=== PATIENT | male | born 1990 | race Caucasian/White ===

== ENCOUNTER 2020-02-26 15:45 | Emergency (ER) | payer SELFPAY ==
[~2020-02-26] VITALS: Ht 175.3 cm; Wt 111.1 kg
--- OUTSIDE RECORDS SUMMARY | 2020-02-26 17:49 | XMS REPORT ---
Author Author Admin, [place] Organization [facility] – [place] [facility] Address [address] [place] [address] Phone Allergies, Adverse Reactions, Alerts Allergy Name Reaction Description Start Date Severity Status Provider No Known Allergies Caryn MORFINP Conditions or Problems Problem Name Problem Code Onset Date Status Entry Date Provider Comment Standard Description Annotate Syphilis 097.9 Active Caryn MORFINP Syphilis, unspecified Contact with or exposure to unspecified communicable disease V01.9 Active Rosemarie Minor 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 Contact with or exposure to unspecified communicable disease Exposure to sexually transmissible disorder (event) V01.6 Active Caryn Juarez AUTOMATIC EDGER Contact with or exposure to venereal diseases HIV exposure, possible V15.89 Active Caryn MORFINP Other specified personal history presenting hazards to health Rheumatoid arthritis of bilateral wrists 714.0 Active Caryn MORFINP Rheumatoid arthritis Medication List Medication Instructions Start Date Stop Date Generic Name NDC Status Provider Patient Instruction AZITHROMYCIN 500 MG ORAL TABLET 2 tabs by mouth single dose AZITHROMYCIN 60964721940 Active Caryn Juarez AUTOMATIC EDGER Active MOTRIN IB 200 MG ORAL TABLET 800 mg motrin As Needed IBUPROFEN 50425976874 Active Caryn Juarez AUTOMATIC EDGER Active ONDANSETRON HCL 4 MG ORAL TABLET 1 tablet 1-2 hours before taking PEP ONDANSETRON HCL 79337875585 Active Caryn Juarez AUTOMATIC EDGER Active TIVICAY 50 MG ORAL TABLET 1 By Mouth once a day DOLUTEGRAVIR SODIUM 46085326718 Active Caryn Juarez AUTOMATIC EDGER Active TRUVADA 200-300 MG ORAL TABLET 1 by mouth daily EMTRICITABINE-TENOFOVIR 76915143063 Active Caryn Juarez AUTOMATIC EDGER Active Vital Signs Date Name Value Unit Range Description blood pressure, diastolic 88 mm[Hg] BP cooley blood pressure, systolic 153 mm[Hg] BP sys height E&M 69 [in_us] Bdy height pulse rate E&M 72 /min Heart rate respiratory rate E&M 22 /min Resp rate temperature E&M 98.4 [degF] Body temperature weight E&M 256 [lb_av] Weight Measured Diagnostic Results Date Name Value Unit Range Description Lab Report: CBC With Differential/Platelet, Comp. Metabolic Panel (14), ... - Hematology hematocrit, blood 44.8 % 37.5-51.0 Lab Report: Ct, Ng, Trich vag by TEA - Microbiology Neisseria gonorrhoeae DNA probe Negative Negative Lab Report: Comp. Metabolic Panel (14), RPR, Rfx Qn RPR/Confirm TP, RPR ... - Chemistry sodium, serum 139 mmol/L 134-144 Lab Report: CBC With Differential/Platelet, Comp. Metabolic Panel (14), ... - Hematology neutrophils as percent of blood leukocytes 46 % Not Estab. basophils as percent of blood leukocytes 0 % Not Estab. Lab Report: Comp. Metabolic Panel (14), RPR, Rfx Qn RPR/Confirm TP, RPR ... - Serology rapid plasma reagin antibody, serum 1:4 NonRea<1:1 Lab Report: Comp. Metabolic Panel (14), RPR, Rfx Qn RPR/Confirm TP, RPR ... - Chemistry carbon dioxide, venous blood 22 mmol/L 20-29 hepatitis B surface antigen Negative Negative chloride, serum 101 mmol/L 96-106 calcium, serum 9.4 mg/dL 8.7-10.2 urea nitrogen, blood 10 mg/dL 6-20 alanine aminotransferase (SGPT), serum 21 U/L 0-44 Lab Report: CBC With Differential/Platelet, Comp. Metabolic Panel (14), ... - Hematology mean corpuscular hemoglobin, RBC 31.8 pg 26.6-33.0 mean corpuscular hemoglobin concentration, RBC 34.4 G/DL % 31.5-35.7 Lab Report: Comp. Metabolic Panel (14), RPR, Rfx Qn RPR/Confirm TP, RPR ... - Chemistry protein, total, serum 7.7 g/dL 6.0-8.5 Lab Report: Comp. Metabolic Panel (14), RPR, Rfx Qn RPR/Confirm TP, RPR ... - Lab Treponema pallidum antibodies, by particle agglutination Positive Negative Lab Report: Comp. Metabolic Panel (14), RPR, Rfx Qn RPR/Confirm TP, RPR ... - Chemistry alkaline phosphatase, serum 95 U/L 39-117 Lab Report: CBC With Differential/Platelet, Comp. Metabolic Panel (14), ... - Hematology erythrocyte (RBC) count 4.85 X10E6/UL 10*6/mm3 4.14-5.80 Lab Report: Comp. Metabolic Panel (14), RPR, Rfx Qn RPR/Confirm TP, RPR ... - Serology hepatitis C antibody, serum <0.1 0.0-0.9 Lab Report: CBC With Differential/Platelet, Comp. Metabolic Panel (14), ... - Hematology hemoglobin, blood 15.4 g/dL 13.0-17.7 Lab Report: CBC With Differential/Platelet, Comp. Metabolic Panel (14), ... - Chemistry Absolute Neutrophils 3.7 X10E3/UL 10*3/uL 1.4-7.0 Lab Report: Comp. Metabolic Panel (14), RPR, Rfx Qn RPR/Confirm TP, RPR ... - Chemistry urea nitrogen/creatinine ratio, serum 13 9-20 Lab Report: CBC With Differential/Platelet, Comp. Metabolic Panel (14), ... - Hematology lymphocytes as percent of blood leukocytes 42 % Not Estab. mean corpuscular volume, RBC 92 fL 79-97 Lab Report: Comp. Metabolic Panel (14), RPR, Rfx Qn RPR/Confirm TP, RPR ... - Genetics/fertility eGFR if 142 mL/min/1.73m2 >59 Lab Report: CBC With Differential/Platelet, Comp. Metabolic Panel (14), ... - Hematology basophil count, absolute 0.0 x10E3/uL 0.0-0.2 monocytes as percent of blood leukocytes 9 % Not Estab. Lab Report: Ct/GC TEA, Rectal, Ct/GC TEA, Pharyngeal - Basic GC Rectum Negative Negative Lab Report: Comp. Metabolic Panel (14), RPR, Rfx Qn RPR/Confirm TP, RPR ... - Chemistry globulin, serum 3.3 1.5-4.5 albumin/globulin ratio, serum 1.3 1.2-2.2 Estimated Glomerular Filtration Rate (calc) 122 mL/min/1.73m2 >59 creatinine, serum 0.80 mg/dL 0.76-1.27 bilirubin, serum, total 0.5 mg/dL 0.0-1.2 Lab Report: CBC With Differential/Platelet, Comp. Metabolic Panel (14), ... - Hematology Eosinophil Absolute Count 0.2 X10E3/UL 10*3/uL 0.0-0.4 eosinophils as percent of blood leukocytes 3 % Not Estab. Lab Report: Comp. Metabolic Panel (14), RPR, Rfx Qn RPR/Confirm TP, RPR ... - Chemistry blood glucose, random 129 mg/dL 65-99 Lab Report: Ct, Ng, Trich vag by TEA - Lab chlamydia DNA probe Negative Negative Lab Report: Comp. Metabolic Panel (14), RPR, Rfx Qn RPR/Confirm TP, RPR ... - Chemistry aspartate aminotransferase (SGOT), serum 15 U/L 0-40 Lab Report: CBC With Differential/Platelet, Comp. Metabolic Panel (14), ... - Hematology red blood cell distribution width 13.2 % 12.3-15.4 leukocyte count, blood 8.2 X10E3/UL 10*3/mm3 3.4-10.8 Lab Report: Comp. Metabolic Panel (14), RPR, Rfx Qn RPR/Confirm TP, RPR ... - Chemistry potassium, serum 3.9 mmol/L 3.5-5.2 Lab Report: CBC With Differential/Platelet, Comp. Metabolic Panel (14), ... - Hematology monocyte count, blood, automated 0.7 X10E3/UL 10*3/uL 0.1-0.9 Lab Report: Comp. Metabolic Panel (14), RPR, Rfx Qn RPR/Confirm TP, RPR ... - Chemistry albumin, serum 4.4 g/dL 3.5-5.5 Lab Report: CBC With Differential/Platelet, Comp. Metabolic Panel (14), ... - Chemistry immature granulocytes, percentage of total cells, blood 0 % Not Estab. Lab Report: CBC With Differential/Platelet, Comp. Metabolic Panel (14), ... - Hematology platelet count 231 X10E3/UL 10*3/mm3 150-379 Lab Report: Ct/GC TEA, Rectal, Ct/GC TEA, Pharyngeal - Microbiology Neisseria gonorrhoeae, throat culture Negative Negative Lab Report: CBC With Differential/Platelet, Comp. Metabolic Panel (14), ... - Hematology lymphocyte count, blood, automated 3.4 X10E3/UL 10*3/mm3 0.7-3.1 Encounters Date Encounter Provider Code Facility 16:58:04 CDT Est Patient Detailed - 81208 Caryn Juarez AUTOMATIC EDGER CPT-31366 [facility] – [place] [facility] Procedures Code Procedure Name Date Entry Date Standard Description CPT-J0561 Injection, penicillin g benzathine, 1.2 mu 15:23:45 CDT CPT-33924 Handling of specimen for transfer 16:58:04 CDT CPT-93058 Venipuncture 16:58:04 CDT
--- OUTSIDE RECORDS SUMMARY | 2020-02-26 17:49 | XMS REPORT | Summary of Care ---
Author Author Sabrina Resendiz M.A. Unknown Address Unknown Phone Unavailable Care Team Providers Care Nursing Care Partner Name Role Phone NYDIA WEISS M.D. Unavailable Unavailable Unavailable Unavailable Functional Status Name Dates Details Functional status health issues are not documented Status: Name Dates Details Cognitive status health issues are not documented Status: Problems Name Dates Details Bilateral impacted cerumen (380.4, H61.23) Status: Active Acute otitis externa of both ears, unspecified type (380.10, H60.503) Status: Active Overweight and obesity (278.02, E66.3) Status: Active Hemorrhoid (455.6, K64.9) Status: Active Need for influenza vaccination (V04.81, Z23) Status: Active Medications Name Dates Details FRANDY Brar 50 % External Pad USE DIRECTED. Quantity: 30 NYDIA WEISS M.D. Start : 31-Dec-2017 Active Hydrocortisone 2.5 % Rectal Cream INSERT 1 APPLICATORFUL RECTALLY 3 TIMES DAILY. * Quantity: 10 Refills: 3 NYDIA WEISS M.D. Start : 31-Dec-2017 Active 30 GM Tube Anusol-HC 25 MG Rectal Suppository INSERT 1 SUPPOSITORY RECTALLY 2 TIMES DAILY. * Quantity: 20 Refills: 1 NYDIA WEISS M.D. Start : 31-Dec-2017 Active Allergies and Adverse Reactions Name Dates Details No Known Allergies (Allergy) Status: Active Past Medical History Name Dates Details History of depression (V11.8, Z86.59) Status: Resolved Procedures Procedure Dates Details [[facility]] HEMOGLOBIN A1c Date: 31-Dec-2017 [[facility]] LIPID PANEL Date: 31-Dec-2017 Immunization Name Dates Details Fluarix Quadrivalent 0.5 ML Intramuscular Suspension Prefilled Syringe Lot #: [id number] on: 31-Dec-2017 Social History Name Dates Details - Status: Name Dates Details Smoker. current status unknown Vital Signs Date Test Result Details [id number] BP Systolic 137 mm[Hg] Status: Comments: Location: LUE; Position: Sitting BP Diastolic 85 mm[Hg] Status: Comments: Location: LUE; Position: Sitting Height 69 in Status: Weight 250.375 lb Status: Body Mass Index Calculated 36.97 kg/m2 Status: Body Surface Area Calculated 2.27 m2 Status: Temperature 97.4 f Status: Comments: Method: Temporal Heart Rate 76 /min Status: Comments: Location: L Brachial Artery; Respiration Rate 16 /min Status: Comments: Quality: Normal Results Date Description Value Details Results not documented Plan of Care Name Dates Details Planned Observations Planned Goals not documented Interventions Provided Medication Changes* Anusol-HC 25 MG Rectal Suppository - Start * Hydrocortisone 2.5 % Rectal Cream - Start * [place] Dick[employer] Witch Zonia 50 % External Pad - Start Labs/Procedures/Imaging* [QL] HEMOGLOBIN A1c; To Be Done: 31 Dec 2017 * [[facility]] LIPID PANEL; To Be Done: 31 Dec 2017 Medications/Immunizations Administered* Fluarix Quadrivalent 0.5 ML Intramuscular Suspension Prefilled Syringe; Done: 31 Dec 2017 Plan* 1. counseled on smoking cessation * 2. flu shot today * 3. anusol suppoitory and cream * 4. tux pads prn * 5. counseled on high fiber diet * 6. screening labs * 7. follow up as needed Instructions Name Dates Details Instructions not documented Encounters Appointment; OMEGA ANN NP Encounter Diagnosis: Problem not documented On: 25-Jul-2016 14:30 Appointment; NYDIA WEISS M.D. Encounter Diagnosis: Problem not documented On: 31-Dec-2017 8:45
--- OUTSIDE RECORDS SUMMARY | 2020-02-26 17:49 | XMS REPORT ---
Author [facility] Address Unknown Phone Unavailable Care Team Providers Care Attending Anesthesiologist Name Role Phone Unavailable Unavailable Payers Payer Name Policy Type Policy Number Effective Date Expiration Date Problems This patient has no known problems. Allergies, Adverse Reactions, Alerts Allergy Name Allergy Type Status Severity Reaction(s) Onset Date Inactive Date Treating Clinician Comments No Known Allergies DA Active U 2019-06-03 00:00:00 No Known Allergies DA Active U 2018-12-14 00:00:00 No Known Intolerances DA Active U 2009-07-03 00:00:00 Medications This patient has no known medications. Results Test Description Test Time Test Comments Text Results Atomic Results Result Comments LACTIC ACID 2019-09-08 09:20:00 LACTIC ACID (test code=LACT) 0.6 mmol/L 0.4-1.9 LATE COLLECTION DUE TO PROCEDURE. 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 Sagittal and coronal reformatted images were generated. Automated exposure control was utilized for this reduction. Phases of contrast: venous and delayed COMPARISON: None FINDINGS: Visualized thorax: Normal Hepatobiliary system: Normal Pancreas: Normal Spleen: Normal Adrenal glands: Normal Genitourinary system: Normal Gastrointestinal tract and appendix: Normal Abdominal vascular structures: Normal Peritoneum and retroperitoneum: No free fluid or free air. No omental or mesenteric masses. No abnormal lymph nodes.. No stranding of the perirectal fat. Musculoskeletal structures and abdominal wall: Bones are within normal limits. There is stranding of the subcutaneous soft tissues in the left buttock that extends into the perianal region. No rim-enhancing fluid collection is visualized. Additionally this edema does not contact the underlying gluteal muscles. No stranding of the perirectal fat PAGE 1 Signed Report (CONTINUED) Name: SALAS ZARATE [facility] : 1990 Age/S: 29 / M [address] Unit #: [id number] Loc: [place] [address] Phys: Shannon Lopez NP Acct: [id number] Dis Date: Status: REG ER PHONE #: [phone] Exam Date: 09/08/2019 0809 FAX #: [phone] Reason: Left buttocks abscess with erythema spreading p EXAMS: CPT CODE: [id number] CT ABD PELVIS W/CONT 88072 <Continued> IMPRESSION: Cellulitis in the subcutaneous soft tissues overlying the left gluteal region extending into the perianal region. However no discrete fluid collection is visualized. Additionally no extension to the gluteal muscles or abnormalities of the regional osseous structures. There is no inflammatory change seen in the perirectal fat and no intra-abdominal abnormality. Location: [facility] at 0850 Reported and signed by: Vincenzo Diaz MD CC: Shannon Lopez NP Technologist:José Prabhakar RT(R),(MR),(CT) CTDI: DLP: Trnscb Date/Time: 09/08/2019 (0 850) [email or web address] Orig Print D/T: S: 09/08/2019 (5217) PAGE 2 Signed Report URINALYSIS [id number] 08:15:00* Test Item Value Reference Range Comments UA COLOR (test code=COLU) YELLOW YELLOW UA APPEARANCE (test code=APPU) CLEAR CLEAR UA GLUCOSE DIPSTICK (test code=DGLUU) NEGATIVE mg/dL NEGATIVE UA BILIRUBIN DIPSTICK (test code=BILU) NEGATIVE mg/dL NEGATIVE UA KETONE DIPSTICK (test code=KETU) NEGATIVE mg/dL NEGATIVE UA SPECIFIC GRAVITY (test code=SGU) 1.036 1.001-1.035 UA BLOOD DIPSTICK (test code=ADDISON) Negative mg/dL NEGATIVE UA PH DIPSTICK (test code=PINKY) 6.0 5.0-8.0 UA PROTEIN DIPSTICK (test code=PROU) 10 (Trace) mg/dL NEGATIVE UA UROBILINIOGEN DIPSTICK (test code=URO) Normal mg/dL NEGATIVE UA NITRITE DIPSTICK (test code=LENARD) NEGATIVE NEGATIVE UA LEUKOCYTE ESTERASE W REFLEX (test code=LEUUR) NEGATIVE Tammy/uL NEGATIVE UA WBC (test code=WBCU) 0-5 per HPF 0-5 UA RBC (test code=RBCU) 0-3 #/HPF 0-5 UA EPITHELIAL CELLS (test code=EPIU) Few (2-5/hpf) per HPF FEW UA BACTERIA (test code=BACU) NONE SEEN #/HPF NONE UA MUCUS (test code=MUCU) FEW #/LPF FEW Urine Source? Clean CatchBASIC METABOLIC [id number] 07:34:00* Test Item Value Reference Range Comments SODIUM (test code=NA) 141 mmol/L 136-145 POTASSIUM (test code=K) 4.0 mmol/L 3.5-5.1 CHLORIDE (test code=CL) 107.0 mmol/L 98-107 CARBON DIOXIDE (test code=CO2) 27.0 mmol/L 21-32 ANION GAP (test code=GAP) 11.0 10-20 GLUCOSE (test code=GLU) 99 mg/dL 74-106 BLOOD UREA NITROGEN (test code=BUN) 15 mg/dL 7-18 GLOMERULAR FILTRATION RATE (test code=GFR) > 60 mL/min >=60 Estimated GFR by using Modified MDRD formula.Chronic kidney disease is defined as either kidney damageor GFR <60 mL/min/1.73 m2 for >3 months. CREATININE (test code=CREAT) 0.70 mg/dL 0.7-1.3 BUN/CREATININE RATIO (test code=BUN/CREA) 21.4 10-20 CALCIUM (test code=CA) 9.5 mg/dL 8.5-10.1 HEPATIC FUNCTION [id number] 07:34:00* Test Item Value Reference Range Comments TOTAL PROTEIN (test code=PROT) 8.2 gram/dL 6.4-8.2 ALBUMIN (test code=ALB) 3.6 g/dL 3.4-5.0 GLOBULIN (test code=GLOB) 4.6 gram/dL 2.7-4.2 ALBUMIN/GLOBULIN RATIO (test code=A/G) 0.8 0.75-1.50 BILIRUBIN TOTAL (test code=BILT) 0.30 mg/dL 0.0-1.0 BILIRUBIN DIRECT (test code=BILD) 0.09 mg/dL 0.0-0.20 SGOT/AST (test code=AST) 13 IUnit/L 15-37 SGPT/ALT (test code=ALT) 20 IUnit/L 12-78 ALKALINE PHOSPHATASE TOTAL (test code=ALKP) 74 IUnit/L 45-117 Note change in reference range due to change in reagent. CBC W/AUTO [id number] 07:12:00* Test Item Value Reference Range Comments WHITE BLOOD CELL (test code=WBC) 11.8 K/mm3 4.5-12.5 RED BLOOD CELL (test code=RBC) 4.46 mill/mm3 4.0-5.8 HEMOGLOBIN (test code=HGB) 13.6 gram/dL 13.0-17.5 HEMATOCRIT (test code=HCT) 41.5 % 42.0-52.0 MEAN CELL VOLUME (test code=MCV) 93.0 fL 80-98 MEAN CELL HGB (test code=MCH) 30.5 picogram 27.0-33.0 MEAN CELL HGB CONCETRATION (test code=MCHC) 32.8 gram/dL 33.0-36.0 RED CELL DISTRIBUTION WIDTH (test code=RDW) 12.9 % 11.6-16.2 RED CELL DISTRIBUTION WIDTH SD (test code=RDW-SD) 44.1 fL 37.0-51.0 PLATELET COUNT (test code=PLT) 214 K/mm3 150-450 MEAN PLATELET VOLUME (test code=MPV) 10.5 fL 6.7-11.0 NEUTROPHIL % (test code=NT%) 60.6 % 39.0-69.0 IMMATURE GRANULOCYTE % (test code=IG%) 0.3 % 0.0-5.0 LYMPHOCYTE % (test code=LY%) 27.7 % 25.0-55.0 MONOCYTE % (test code=MO%) 9.8 % 0.0-10.0 EOSINOPHIL % (test code=EO%) 1.4 % 0.0-5.0 BASOPHIL % (test code=BA%) 0.2 % 0.0-1.0 NUCLEATED RBC % (test code=NRBC%) 0.0 % 0-0 NEUTROPHIL # (test code=NT#) 7.19 K/mm3 1.8-7.7 IMMATURE GRANULOCYTE # (test code=IG#) 0.03 x10 3/uL 0-0.03 LYMPHOCYTE # (test code=LY#) 3.28 K/mm3 1.0-5.0 MONOCYTE # (test code=MO#) 1.16 K/mm3 0-0.8 EOSINOPHIL # (test code=EO#) 0.16 K/mm3 0.0-0.5 BASOPHIL # (test code=BA#) 0.02 K/mm3 0.0-0.2 NUCLEATED RBC # (test code=NRBC#) 0.00 K/mm3 0.0-0.1 POC LACTIC [id number] 07:08:00* Test Item Value Reference Range Comments POC LACTIC ACID (test code=POCLAC) 1.25 MMOL/L 0.4-2.2 - XR CHEST 1 [id number] 06:40:00 FAX: Shannon Lopez MAKE UP WORKER [place]: B St: REG Name: SALAS OLIVARES [facility] : [birth year] Age/S: 29/M [address] [facility] Unit #: [id number] Loc: [place] [address] Phys: Shannon Lopez NP Acct: [id number] Dis Date: Status: REG ER PHONE #: [phone] Exam Date: 09/08/2019619 FAX #: [phone] Reason: CODE SEPSIS EXAMS: CPT CODE: [id number] XR CHEST 1 V 05087 - XR CHEST 1 V, 09/08/2019 6:10 AM Reason For Examination: CODE SEPSIS Comparison: None available Location: R16 Findings L UNGS: Nonspecific increased opacity within the right hemithorax may be in part positional versus reflective of a pneumonitis, atypical edema or atelectasis PLEURA: No pleural effusions CARDIOMEDIASTINAL SILHOUETTE Unremarkable IMPRES RAVINDRA: Nonspecific increased opacity within the right hemithorax may be i n part positional versus reflective of a pneumonitis, atypical edema or atelectasis at 0640 Reported and signed by: Veronica Lee M.D. CC: Shannon Lopez NP Techn ologist: LORAINE MCKEON JR Trnscrd Date/Malachi e/By: 09/08/2019 (0640) : By: [email or web address] Orig Print D/T: S: 09/08/2019 (3457) PAGE 1 Signed Report
== END 2020-02-26 16:00 | disposition home or self-care (01) ==
LOC: ER 15:45
DX: L03.012 Cellulitis of left finger (principal); L03.011 Cellulitis of right finger; F41.9 Anxiety disorder, unspecified
CPT/HCPCS: 99283

== ENCOUNTER 2022-08-17 15:08 | Emergency (ER) | payer OTHER ==
[~2022-08-17] VITALS: Ht 175.3 cm; Wt 117.9 kg
[2022-08-17] MEDS ORDERED: BACTRIM DS TAB1 EACH PO (16:14)
[2022-08-17] MEDS ORDERED: KEFLEX125 MG/5 M PO (16:15)
[2022-08-17 16:40] VITALS: BP 117/84
== END 2022-08-17 16:22 | disposition home or self-care (01) ==
LOC: ER 16:01
DX: L03.011 Cellulitis of right finger (principal); F41.9 Anxiety disorder, unspecified; F17.210 Nicotine dependence, cigarettes, uncomplicated
CPT/HCPCS: 99283